=== PATIENT | female | born 1965 | race American Indian/Alaskan Native ===

== ENCOUNTER 2019-01-28 15:35 | Emergency (ER) | payer SELFPAY ==
--- NOTE | 2019-01-28 16:33 | Emergency Department Report ---
Blank Doc - Documentation Documentation: This is a 53-year-old female that presents with abdominal pain with N/V. This initial assessment/diagnostic orders/clinical plan/treatment(s) is/are subject to change based on patient's health status, clinical progression and re- assessment by fellow clinical providers in the ED. Further treatment and workup at subsequent clinical providers discretion. Patient/guardians urged not to elope from the ED as their condition may be serious if not clinically assessed and managed. Initial orders include: 1- Patient sent to [facility] for further evaluation and treatment 2- labs 3- UA
[2019-01-28 17:07] LABS: Basophils # (Auto) 0.1 K/mm3 (0.0-0.1); Basophils % (Auto) 0.9 % (0.0-1.8); Eosinophils # (Auto) 0.3 K/mm3 (0.0-0.4); Eosinophils % (Auto) 4.1 % (0.0-4.3); Hematocrit 38.4 % (30.3-42.9); Hemoglobin 12.5 gm/dl (10.1-14.3); Lymphocytes # (Auto) 2.9 K/mm3 (1.2-5.4); Lymphocytes % (Auto) 42.5 % (13.4-35.0); Mean Corpuscular HGB Conc 33 % (30-34); Monocytes # (Auto) 0.4 K/mm3 (0.0-0.8); Monocytes % (Auto) 5.5 % (0.0-7.3); Platelet Count 340 K/mm3 (140-440); Red Blood Count 5.53 M/mm3 (3.65-5.03); Red Cell Distribution Width 16.9 % (13.2-15.2)
[2019-01-28 17:10] LABS: Mean Corpuscular Volume 69 fl (79-97)
[2019-01-28 17:18] LABS: Alanine Aminotransferase 12 units/L (7-56); Albumin 3.6 g/dL (3.9-5); BUN/Creatinine Ratio 14; Blood Urea Nitrogen 15 mg/dL (7-17); Hemolysis Index 10
[2019-01-28 17:53] LABS: Bacteria,Urine 1+ /HPF (Negative); Bilirubin,Urine NEG (Negative); Blood,Urine NEG (Negative); Color,Urine Yellow (Yellow); Mucus,Urine FEW /HPF; Protein,Urine <15 mg/dL mg/dL (Negative); Urobilinogen,Urine < 2.0 mg/dL (<2.0)
[2019-01-28] MEDS ORDERED: NACL 0.9% 1000 ML 1,000 ML IV ONE (19:27)
[2019-01-28] MEDS ORDERED: TORADOL IV ONE (19:27)
[2019-01-28] MEDS ORDERED: ZOFRAN IV ONE (19:30)
--- NOTE | 2019-01-28 21:08 | Cat Scan Report ---
PROCEDURE: CT ABDOMEN PELVIS WO CON TECHNIQUE: Axial helical imaging through the abdomen and pelvis with sagittal and coronal reformatte d images obtained. HISTORY: abd pain COMPARISONS: None FINDINGS: There is elevation of the left hemidiaphragm. The lung bases are without infiltrate, pneumothorax or pleural fluid collection. The liver appears to be enlarged. The spleen, pancreas, kidneys and adrenal glands are unremarkable. The gallbladder is moderately distended and contains gallstones. There is a possible stone in the gal lbladder or in the proximal common bile duct. There is no evidence of pericholecystic inflammatory ch reta. The bowel is normal caliber. There are colonic diverticula without radiographic evidence of diverticulitis. There is no evidence of pneumoperitoneum or free fluid. The abdominal aorta is normal caliber. There is no evidence of intra-abdominal adenopathy. The urinary bladder is moderately distended and unremarkable in appearance. The uterus and adnexa are unremarkable. The bony structures are notable for spondylitic change of the lumbar spine and grade 1 anterolisthesi s L5 on S1 IMPRESSION: 1. Gallstones within the gallbladder with possible stone in the gallbladder neck or in the proximal c ommon bile duct. If further imaging is required, ultrasound of the gallbladder or MRCP may be helpful. 2. The liver appears to be enlarged. 3. Colonic diverticula without evidence of diverticulitis. 4. Spondylitic change lumbar spine with grade 1 anterolisthesis L5 on S1. This document is electronically signed by Jerica Carcamo MD., January 28 2019 09:06:23 PM ET
--- NOTE | 2019-01-28 21:34 | Emergency Department Report ---
ED Abdominal Pain HPI - General Chief Complaint: Abdominal Pain Stated Complaint: STOMACH PAIN/VOMIT Time Seen by Provider: 01/28/19 16:32 Source: patient Mode of arrival: Ambulatory Limitations: No Limitations - History of Present Illness Initial Comments: This is a 53-year-old female that presents with abdominal pain with N/V x 3 days pt denies fever or chills no last po intake this am, last n/v 4 hrs ago pt denies hx of gallstones no kidney stones no cp no sob no dizziness no lightheadedness no diaphoresis. MD Complaint: abdominal pain Onset/Timin -: days(s) Location: RUQ, epigastric Radiation: RUQ Migration to: RUQ Severity: moderate Severity scale (0 -10): 7 Quality: aching, sharp Consistency: constant Improves With: nothing Worsens With: eating Associated Symptoms: nausea, vomiting. denies: diarrhea, fever, constipation, dysuria, melena, syncope - Related Data LMP Date: 01/29/12 Previous Rx's Medication Instructions Recorded Last Taken Type Ciprofloxacin HCl [Ciprofloxacin 500 mg PO BID 10 Days #20 tab 01/28/19 Unknown Rx TAB] Dicyclomine [Bentyl] 10 mg PO QID PRN #40 capsule 01/28/19 Unknown Rx Metoclopramide [Reglan] 10 mg PO ACHS #40 tablet 01/28/19 Unknown Rx Omeprazole 40 mg PO DAILY #30 capsule. 01/28/19 Unknown Rx metroNIDAZOLE [Flagyl] 500 mg PO BID 10 Days #30 tab 01/28/19 Unknown Rx Allergies Allergy/AdvReac Type Severity Reaction Status Date / Time No Known Allergies Allergy Unverified 01/28/19 15:38 ED Review of Systems ROS: Stated complaint: STOMACH PAIN/VOMIT Other details as noted in HPI Constitutional: denies: chills, fever Eyes: denies: eye pain, eye discharge, vision change ENT: denies: ear pain, throat pain Respiratory: denies: cough, shortness of breath, wheezing Cardiovascular: denies: chest pain, palpitations Endocrine: no symptoms reported Gastrointestinal: abdominal pain, nausea, vomiting. denies: diarrhea, constipation, hematemesis, melena Genitourinary: denies: urgency, dysuria, frequency, hematuria, discharge, dyspareunia Musculoskeletal: back pain. denies: joint swelling, arthralgia, myalgia Skin: as per HPI, rash Neurological: headache. denies: weakness, numbness, paresthesias, confusion, vertigo Psychiatric: denies: anxiety, depression Hematological/Lymphatic: denies: easy bleeding, easy bruising ED Past Medical Hx - Past Medical History Previous Medical History?: No - Surgical History Past Surgical History?: No - Social History Smoking Status: Never Smoker Substance Use Type: None - Medications Home Medications: Home Medications Medication Instructions Recorded Confirmed Last Taken Type Ciprofloxacin HCl [Ciprofloxacin 500 mg PO BID 10 Days #20 tab 01/28/19 Unknown Rx TAB] Dicyclomine [Bentyl] 10 mg PO QID PRN #40 capsule 01/28/19 Unknown Rx Metoclopramide [Reglan] 10 mg PO ACHS #40 tablet 01/28/19 Unknown Rx Omeprazole 40 mg PO DAILY #30 capsule. 01/28/19 Unknown Rx metroNIDAZOLE [Flagyl] 500 mg PO BID 10 Days #30 tab 01/28/19 Unknown Rx ED Physical Exam - General Limitations: No Limitations General appearance: alert, in no apparent distress - Head Head exam: Present: atraumatic, normocephalic - Eye Eye exam: Present: normal appearance, PERRL, EOMI Pupils: Present: normal accommodation - ENT ENT exam: Present: normal orophraynx, mucous membranes moist, TM's normal bilaterally, normal external ear exam - Neck Neck exam: Present: normal inspection, full ROM. Absent: lymphadenopathy - Respiratory Respiratory exam: Present: normal lung sounds bilaterally. Absent: respiratory distress, wheezes, stridor, chest wall tenderness - Cardiovascular Cardiovascular Exam: Present: regular rate, normal rhythm, normal heart sounds. Absent: systolic murmur, diastolic murmur, rubs, gallop - GI/Abdominal GI/Abdominal exam: Present: soft, tenderness (RUQ ), normal bowel sounds. Absent: guarding, rebound, rigid, organomegaly, bruit, hernia - Rectal Rectal exam: Present: deferred - Extremities Exam Extremities exam: Present: normal inspection, full ROM, normal capillary refill. Absent: tenderness, pedal edema, joint swelling, calf tenderness - Back Exam Back exam: Present: normal inspection, full ROM, tenderness. Absent: CVA tenderness (R), CVA tenderness (L), muscle spasm, rash noted - Neurological Exam Neurological exam: Present: alert, oriented X3, CN II-XII intact, normal gait, reflexes normal - Psychiatric Psychiatric exam: Present: normal affect, normal mood - Skin Skin exam: Present: warm, dry, intact, normal color. Absent: rash ED Course Vital Signs 01/28/19 01/28/19 01/28/19 16:32 19:51 19:53 Temperature 98 F Pulse Rate 79 Respiratory 20 18 18 Rate Blood Pressure 138/102 O2 Sat by Pulse 99 Oximetry 01/28/19 20:21 Temperature Pulse Rate Respiratory 18 Rate Blood Pressure O2 Sat by Pulse Oximetry ED Medical Decision Making - Lab Data Result diagrams: 01/28/19 16:42 01/28/19 16:42 - Radiology Data Radiology results: report reviewed, image reviewed Ordering Physician: JUAN ALBERTO NATHAN NP Date of Service: 01/28/19 Procedure(s): CT abdomen pelvis wo con Accession Number(s): [id number] cc: JUAN ALBERTO NATHAN NP PROCEDURE: CT ABDOMEN PELVIS WO CON TECHNIQUE: Axial helical imaging through the abdomen and pelvis with sagittal and coronal reformatted images obtained. HISTORY: abd pain COMPARISONS: None FINDINGS: There is elevation of the left hemidiaphragm. The lung bases are without infiltrate, pneumothorax or pleural fluid collection. The liver appears to be enlarged. The spleen, pancreas, kidneys and adrenal glands are unremarkable. The gallbladder is moderately distended and contains gallstones. There is a possible stone in the gallbladder or in the proximal common bile duct. There is no evidence of pericholecystic inflammatory change. The bowel is normal caliber. There are colonic diverticula without radiographic evidence of diverticulitis. There is no evidence of pneumoperitoneum or free fluid. The abdominal aorta is normal caliber. There is no evidence of intra-abdominal adenopathy. The urinary bladder is moderately distended and unremarkable in appearance. The uterus and adnexa are unremarkable. The bony structures are notable for spondylitic change of the lumbar spine and grade 1 anterolisthesis L5 on S1 IMPRESSION: 1. Gallstones within the gallbladder with possible stone in the gallbladder neck or in the proximal common bile duct. If further imaging is required, ultrasound of the gallbladder or MRCP may be helpful. 2. The liver appears to be enlarged. 3. Colonic diverticula without evidence of diverticulitis. 4. Spondylitic change lumbar spine with grade 1 anterolisthesis L5 on S1. This document is electronically signed by Jerica Carcamo MD., January 28 2019 09:06:23 PM ET Transcribed By: ED Dictated By: JERICA CARCAMO MD Electronically Authenticated By: JERICA CARCAMO MD Signed Date/Time: 01/28/192107 DD/ 53 TD/TT: 01/28/192053 - Medical Decision Making CT Abd and pelvis: Gall stones , labs normal ,pain is improved, pt is tolerating po intake without n/v plan, cipro, flagyl, omeprazole, zofran,bentyl, follow up with GI in 2 days follow up with pcp in 2-3 days return to ed if symptoms worsen. pt verbalized agreement and understanding of discharge plan. pt dc'd to home in stable condition at this time. Critical care attestation.: If time is entered above; I have spent that time in minutes in the direct care of this critically ill patient, excluding procedure time. ED Disposition Clinical Impression: Cholelithiasis Qualifiers: Cholelithiasis location: gallbladder and bile duct Cholecystitis presence: without cholecystitis Biliary obstruction: without biliary obstruction Qualified Code(s): K80.70 - Calculus of gallbladder and bile duct without cholecystitis without obstruction Disposition: DC-01 TO HOME OR SELFCARE Is pt being admited?: No Does the pt Need Aspirin: No Condition: Stable Instructions: Abdominal Pain (ED), Acute Nausea and Vomiting (ED), Cholelithiasis (ED) Prescriptions: Dicyclomine [Bentyl] 10 mg PO QID PRN #40 capsule PRN Reason: abdominal spasm Ciprofloxacin HCl [Ciprofloxacin TAB] 500 mg PO BID 10 Days #20 tab metroNIDAZOLE [Flagyl] 500 mg PO BID 10 Days #30 tab Omeprazole 40 mg PO DAILY #30 capsule. Metoclopramide [Reglan] 10 mg PO ACHS #40 tablet Referrals: [facility] [Provider Group] - 3-5 Days [facility] [Outside] - 3-5 Days Forms: Work/School Release Form(ED) Time of Disposition: 22:02
[2019-01-28] MEDS ORDERED: ZOSYN/NS 4.5GM/100ML 4.5 GM/100 ML VIAL IV ONE (21:44)
[2019-01-28 22:33] VITALS: BP 175/98
== END 2019-01-28 22:33 | disposition home or self-care (01) ==
LOC: ED 15:35
DX: K80.20 Calculus of gallbladder without cholecystitis without obstruction (principal)
CPT/HCPCS: 36415; 74176; 80053; 81001; 83690; 85025; 96361; 96374; 96375; 99284; J1885; J2405; J7030

== ENCOUNTER 2020-12-08 17:21 | Emergency (ER) | payer OTHER ==
[2020-12-08] MEDS ORDERED: KETOROLAC 30 MG/1 ML INJ IM ONE (19:39)
[2020-12-08] MEDS ORDERED: ACETAMINOPHEN 500 MG TAB PO ONE (19:39)
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
[2020-12-08 21:19] VITALS: BP 150/98
== END 2020-12-08 21:11 | disposition home or self-care (01) ==
LOC: ED 17:21
DX: S39.012A Strain of muscle, fascia and tendon of lower back, initial encounter (principal); M47.816 Spondylosis without myelopathy or radiculopathy, lumbar region; I10 Essential (primary) hypertension; Z79.899 Other long term (current) drug therapy; Z88.0 Allergy status to penicillin; Z91.018 Allergy to other foods; V49.49XA Driver injured in collision with other motor vehicles in traffic accident, initial encounter; Y93.89 Activity, other specified; Y92.488 Other paved roadways as the place of occurrence of the external cause; Y99.8 Other external cause status
CPT/HCPCS: 72131; 96372; 99283; J1885